=== PATIENT | female | born 1970 | race Two or more races ===

== ENCOUNTER 2017-02-18 02:01 | Emergency (ER) | payer OTHER ==
[~2017-02-18] VITALS: Ht 167.6 cm; Wt 83.9 kg
[2017-02-18] MEDS ORDERED: TETRACAINE HCL/PF 0.5% UD 2 ML BOTTLE ONE (02:06)
[2017-02-18] MEDS ORDERED: FLUORESCEIN SODIUM OPHTH 1 EA STRIP ONE (02:06)
[2017-02-18 02:10] VITALS: BP 129/79
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
--- NOTE | 2017-02-18 02:11 | NUR ---
DR. GRANT AT BEDSIDE FOR EYE EXAM
--- NOTE | 2017-02-18 02:17 | NUR ---
Patient discharged under [facility] custody in stable condition. Written and verbal after care instructions given. Patient verbalizes understanding of instruction. pt ambulatory with a steady gait
== END 2017-02-18 02:19 ==
LOC: ER 02:09
DX: S00.211A Abrasion of right eyelid and periocular area, initial encounter (principal); Y04.0XXA Assault by unarmed brawl or fight, initial encounter; Y93.89 Activity, other specified; Y92.89 Other specified places as the place of occurrence of the external cause; Y99.9 Unspecified external cause status
CPT/HCPCS: A4606; Z7610